=== PATIENT | female | born 1975 | race Caucasian/White ===

== ENCOUNTER → 2022-05-29 | Outpatient (CLI) | payer MEDICAID | LOC: M OUTALCOH 07:42 | PROVIDERS: ATTEND Psychiatry & Neurology Psychiatry | DX: Z13.39 Encounter for screening examination for other mental health and behavioral disorders (principal) ==

== ENCOUNTER 2022-06-05 08:07 | Outpatient (RCR) | payer MEDICAID | END 2022-06-09 | LOC: M OUTALCOH 08:07 | PROVIDERS: ATTEND Psychiatry & Neurology Psychiatry | DX: F10.10 Alcohol abuse, uncomplicated (principal); F12.10 Cannabis abuse, uncomplicated; F17.200 Nicotine dependence, unspecified, uncomplicated ==

== ENCOUNTER 2022-07-05 08:00 | Outpatient (RCR) | payer MEDICAID | END 2022-07-09 | LOC: M OUTALCOH 08:00 | PROVIDERS: ATTEND Psychiatry & Neurology Psychiatry | DX: F10.10 Alcohol abuse, uncomplicated (principal); F12.10 Cannabis abuse, uncomplicated; F17.200 Nicotine dependence, unspecified, uncomplicated ==